=== PATIENT | female | born 1995 | race Asian ===

== ENCOUNTER 2023-04-14 08:25 | Emergency (ER) | payer OTHER ==
[~2023-04-14] VITALS: Ht 165.1 cm; Wt 72.6 kg
[2023-04-14 08:26] VITALS: BP 113/81; PULSE 98; RESP 18; TEMP 97; O2SAT 96
[2023-04-14] MEDS ORDERED: BACTO TP (08:41)
[2023-04-14] MEDS ORDERED: VALA1TAB40 PO (08:41)
[2023-04-14 08:46] VITALS: BP 113/81; PULSE 98; RESP 18; TEMP 97; O2SAT 96
== END 2023-04-14 08:36 | disposition home or self-care (01) ==
LOC: MED 08:25
DX: B00.2 Herpesviral gingivostomatitis and pharyngotonsillitis (principal); Z79.899 Other long term (current) drug therapy
CPT/HCPCS: 99283